=== PATIENT | male | born 1965 | race Caucasian/White ===

== ENCOUNTER 2016-10-30 06:14 | Day surgery (SDC) | payer OTHER, BC ==
[2016-10-29 09:49] VITALS: BMI 30.1
--- NOTE | 2016-10-30 10:18 | HP ---
Satellite H - Chief Complaint Chief Complaint: right knee pain - Past Medical History Allergies/Adverse Reactions: Allergies Allergy/AdvReac Type Severity Reaction Status Date / Time No Known Drug Allergies Allergy Verified 10/30/16 09:52 seasonal Allergy Uncoded 10/30/16 09:52 - Current Medications Current Medications: Home Medications Medication Instructions Recorded Fluticasone/Salmeterol [Advair 1 each IH BID 03/13/16 250-50 Diskus] Montelukast Na [Singulair -] 10 mg PO HS 03/13/16 Albuterol Sulfate Inhaler - 2 inh PO Q4H PRN 03/16/16 [Ventolin HFA Inhaler -] Alprazolam [Xanax] 1 mg PO PRN 10/29/16 Oxycodone HCl/Acetaminophen 1 tab PO Q6H #30 tab MDD 4 10/30/16 [Percocet 5-325 mg Tablet -] Satellite Physical Exam - Physical Examination Vital Signs: Vital Signs Period Temp Pulse Resp BP Sys/Ahuja Pulse Ox Last 24 Hr 98.9 F 85 18 114/86 96 General Appearance: Well Nourished, Well Developed, Alert & Oriented x3 ENT: Clear Lung: Normal air movement Heart: Regular rate & rhythm Extremities: Other (right knee- well healed incision, + ttp over proximal medial screw ends, nvi) Neurological: Intact, Alert, Oriented Satellite Impression/Plan - Impression/Plan Impression: right knee painful hardware Operative Procedure: right knee removal of hardware Date to be Performed: 10/30/16
[2016-10-30] MEDS ORDERED: MIDAZOLAM HCL 2 MG/2 ML SINGLE DOSE VIAL ONE (11:26)
[2016-10-30] MEDS ORDERED: PROPOFOL 20 ML ONE (11:31)
[2016-10-30] MEDS ORDERED: ceFAZolin SODIUM 1 GM VIAL IVPB ONE (11:36)
--- NOTE | 2016-10-30 12:05 | OP ---
Operative Note - Note: Operative Date: 10/30/16 Pre-Operative Diagnosis: painful hardware right knee Operation: NASRIN right knee Post-Operative Diagnosis: Same as Pre-op Surgeon: Geovanny Petit Anesthesia: General Operative Report Dictated: Yes
[2016-10-30] MEDS ORDERED: ONDANSETRON 4 MG/2 ML VIAL IVPUSH PRN (12:07)
[2016-10-30] MEDS ORDERED: PROMETHAZINE HCL 25 MG/1 ML VIAL IVPUSH PRN (12:07)
[2016-10-30] MEDS ORDERED: oxyCODONE HCL 5 MG TABLET PO PRN (12:07)
[2016-10-30] MEDS ORDERED: LACTATED RINGERS SOLUTION 1,000 ML IV SCH (12:15)
--- NOTE | 2016-10-30 12:35 | OP ---
DATE OF OPERATION: 10/30/2016 PREOPERATIVE DIAGNOSIS: Painful hardware right knee. POSTOPERATIVE DIAGNOSIS: Painful hardware right knee. PROCEDURE: Removal of hardware right knee. SURGEON: Geovanny Petit MD ANESTHESIA: LMA. CLOSURE: 2-0 Vicryl subcutaneous, 3-0 nylon for skin. ESTIMATED BLOOD LOSS: Negligible. COMPLICATIONS: None. CONDITION: To Recovery in stable condition. DESCRIPTION OF PROCEDURE: The patient was taken to the operating room on November 29, 2016. IV Kefzol was administered prior to the case. Gentle LMA was administered by the anesthesiologist. The right lower extremity was prepped and draped in the usual sterile fashion with a well-padded tourniquet on the proximal thigh. The leg was exsanguinated with an Esmarch bandage and tourniquet was inflated to 275 mmHg. A one-inch horizontal incision over the palpable plate on the lateral aspect of the knee was made. Hemostasis was achieved Bovie cautery. Sharp dissection was carried down to the level of the plate. The 4 proximal screws were identified and were removed easily using a screwdriver. Fluoroscopy revealed a entire screw length was removed. The wound was irrigated. The subcutaneous tissue was closed with 2-0 Vicryl and 3-0 nylon horizontal mattress for skin. A sterile pressure dressing was placed on the knee. The patient was awakened from anesthesia and transferred to recovery in stable condition. TOURNIQUET TIME: 12 minutes. Sampson [id number]
[2016-10-30] MEDS ORDERED: KETOROLAC TROMETHAMINE 30 MG/1 ML VIAL ONE (12:41)
[2016-10-30] MEDS ORDERED: ACETAMINOPHEN INJECTION 100 ML IVPB ONE (12:41)
[2016-10-30] MEDS ORDERED: KETOROLAC TROMETHAMINE 30 MG/1 ML VIAL IVPUSH ONE (12:42)
[2016-10-30] MEDS ORDERED: ACETAMINOPHEN 1000 MG/100 ML VIAL (NON FORMULARY) IVPB ONE (12:43)
[2016-10-30 13:04] VITALS: TEMP 98
[2016-10-30] MEDS ORDERED: oxyCODONE HCL 5 MG TABLET ONE (13:49)
[2016-10-30] MEDS ORDERED: oxyCODONE HCL 5 MG TABLET PO ONE (13:50)
[2016-10-30 14:34] VITALS: BP 101/60; PULSE 70
--- NOTE | 2016-11-02 16:28 | PATH ---
Surgical Pathology Report Patient Name: CIRILO DESOUZA Med. Rec. #: [id number] /Age/Gender: 1965 (Age: 51) / M Account: [id number] Location: [facility] SURGICAL Taken: 10/30/2016 Received: 10/30/2016 Reported: 11/02/2016 Physicians: Geovanny Petit M.D. Specimen(s) Received REMOVED SCREWS RIGHT KNEE Clinical History Osteoarthritis right knee Final Diagnosis SCREWS, RIGHT KNEE, REMOVAL: ORTHOPEDIC HARDWARE (GROSS EXAM). Electronically Signed Hakan Lopez M.D. Gross Description Received fresh labeled "removed screws right knee" are 4 fink metallic screws ranging from 7.5-9.0 cm in length. No soft tissue is present. No sections are submitted, gross only. 10/30/201610/30/2016
== END 2016-10-30 14:36 | disposition home or self-care (01) ==
LOC: JASU-SURG 06:14
PROVIDERS: ATTEND Orthopaedic Surgery
PROC: 0QPD04Z Removal of Internal Fixation Device from Right Patella, Open Approach (ICD-10-PCS; principal; 2016-10-30 11:00)
DX: T84.84XA Pain due to internal orthopedic prosthetic devices, implants and grafts, initial encounter (principal)
CPT/HCPCS: 76000-TC; 88300-TC; 94760